=== PATIENT | female | born 1955 | race Caucasian/White ===

== ENCOUNTER → 2016-08-01 | Outpatient (CLI) | payer OTHER ==
[~2016-08-01] MED LIST: PERCOCET 325 MG1 TA2 PO
== END ==
LOC: COL.RAD 06:40
DX: N28.1 Cyst of kidney, acquired (principal); R31.1 Benign essential microscopic hematuria; D48.1 Neoplasm of uncertain behavior of connective and other soft tissue; M46.86 Other specified inflammatory spondylopathies, lumbar region
CPT/HCPCS: Q9967

== ENCOUNTER → 2016-08-04 | Outpatient (CLI) | payer OTHER | LOC: COL.RAD 07:55 | DX: D39.8 Neoplasm of uncertain behavior of other specified female genital organs (principal); R31.29 Other microscopic hematuria ==

== ENCOUNTER → 2016-08-23 | Outpatient (CLI) | payer OTHER | LOC: MC.RAD 14:52 | DX: Z12.31 Encounter for screening mammogram for malignant neoplasm of breast (principal) ==

== ENCOUNTER 2016-08-26 10:21 | Day surgery (SDC) | payer OTHER ==
[~2016-08-26] VITALS: Ht 154.9 cm; Wt 62.4 kg
[2016-08-26] VITALS (9 sets, daily range): BP systolic 106–130; BP diastolic 61–80; PULSE 54–70; TEMP 97.5–98.1
[2016-08-26] MEDS ORDERED: PERCOCET 325 MG1 TA2 PO (14:46)
== END 2016-08-26 16:23 | disposition home or self-care (01) ==
LOC: SDCO 10:21
DX: D27.1 Benign neoplasm of left ovary (principal); N83.8 Other noninflammatory disorders of ovary, fallopian tube and broad ligament; N83.202 Unspecified ovarian cyst, left side; R93.8 Abnormal findings on diagnostic imaging of other specified body structures
CPT/HCPCS: J2405; J3010; J7120

== ENCOUNTER → 2017-08-24 | Outpatient (CLI) | payer BC | LOC: MC.RAD 14:42 | DX: Z12.31 Encounter for screening mammogram for malignant neoplasm of breast (principal) ==

== ENCOUNTER 2017-12-23 10:11 | Emergency (ER) | payer OTHER ==
[~2017-12-23] VITALS: Ht 154.9 cm; Wt 66.8 kg
[2017-12-23 10:18] VITALS: BP 131/74; TEMP 98.6
[2017-12-23 11:28] VITALS: PULSE 69
== END 2017-12-23 11:29 | disposition home or self-care (01) ==
LOC: COL.ER 10:11
DX: S61.214A Laceration without foreign body of right ring finger without damage to nail, initial encounter (principal); Z23 Encounter for immunization; Z98.51 Tubal ligation status; F17.210 Nicotine dependence, cigarettes, uncomplicated; W25.XXXA Contact with sharp glass, initial encounter; Y92.89 Other specified places as the place of occurrence of the external cause

== ENCOUNTER → 2018-08-27 | Outpatient (CLI) | payer OTHER | LOC: MC.RAD 14:38 | DX: Z12.31 Encounter for screening mammogram for malignant neoplasm of breast (principal) ==

== ENCOUNTER → 2019-09-26 | Outpatient (CLI) | payer OTHER | LOC: MC.RAD 08-29 15:30 | DX: Z12.31 Encounter for screening mammogram for malignant neoplasm of breast (principal) ==

== ENCOUNTER → 2020-09-28 | Outpatient (CLI) | payer OTHER | LOC: MC.RAD 09:15 | DX: Z12.31 Encounter for screening mammogram for malignant neoplasm of breast (principal) ==

== ENCOUNTER → 2023-11-02 | Outpatient (CLI) | payer MEDICARE, OTHER | LOC: MC.RAD 09:09 | DX: Z12.31 Encounter for screening mammogram for malignant neoplasm of breast (principal) ==